=== PATIENT | male | born 2000 ===

== ENCOUNTER → 2022-10-16 | Outpatient (CLI) | payer OTHER | LOC: PLD 12:44 → LAB SHORT 12:44 | DX: C49.11 Malignant neoplasm of connective and soft tissue of right upper limb, including shoulder (principal) | CPT/HCPCS: 88305; 88341; 88342 ==

== ENCOUNTER → 2022-11-13 | Outpatient (CLI) | payer OTHER ==
[2022-11-16 01:08] LABS: CHLAMYDIA TRACHOMATIS, NAA Negative (Negative)
== END | disposition home or self-care (01) ==
LOC: LAB SHORT 18:20 → LAB 18:20
PROVIDERS: Nurse Practitioner Family
DX: Z72.51 High risk heterosexual behavior (principal)
CPT/HCPCS: 87491; 87591